=== PATIENT | female | born 1945 | race Caucasian/White ===

== ENCOUNTER → 2016-10-15 | Outpatient (CLI) | payer MEDICARE, BC | LOC: GMAB 11:25 | PROVIDERS: ATTEND Family Medicine | DX: E03.9 Hypothyroidism, unspecified (principal) ==

== ENCOUNTER → 2017-01-29 | Outpatient (CLI) | payer MEDICARE ==
--- NOTE | 2017-01-30 10:22 | MAM ---
History: Well woman exam. Date of exam: 01/29/2017 Services provided: Bilateral full field digital screening mammography. CAD, the images were reviewed with R2 computer aided detection. FINDINGS: Glandular tissue is scattered glandular contour with increased mammographic density. Comparison with 2014 study. No dominant mass, architectural distortion or clustered microcalcification. IMPRESSION: Benign exam Recommendation: Routine annual mammography BIRAD CATEGORY: 2 BENIGN Electronically signed by: Olamide Bentley MD 01/30/2017 10:21 AM CDT
== END ==
LOC: MAMMO 08:24
PROVIDERS: ATTEND Family Medicine
DX: Z12.31 Encounter for screening mammogram for malignant neoplasm of breast (principal)

== ENCOUNTER 2017-02-16 18:20 | Emergency (ER) | payer MEDICARE ==
--- NOTE | 2017-02-16 19:32 | ED.PDOC ---
History of Present Illness - General Chief Complaint: Neuro Symptoms/Deficits Stated Complaint: R palm got hot and had tingling in her fingers X2 Time Seen by Provider: 02/16/17 19:05 Source: patient, RN notes reviewed, Vital Signs reviewed Exam Limitations: no limitations - History of Present Illness Initial Comments: Twice today patient had episodes where her R palm got hot and her fingers got tingly. Both episodes occurred when she was laying back holding up her e- reader. 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 Denies other symptoms and currently symptoms have resolved. Timing/Duration: 1-3 hours Severity: mild Improving Factors: rest Worsening Factors: other - Holding e-reader Associated Symptoms: denies symptoms Allergies/Adverse Reactions: Allergies Cefaclor [From Ceclor] Allergy (Verified 02/10/15 17:00) Cephalexin [From Keflex] Allergy (Verified 02/10/15 17:00) Cephalosporins Allergy (Verified 02/10/15 17:00) Flu Virus Vaccine Allergy (Verified 02/10/15 17:00) Penicillin G Allergy (Verified 02/10/15 17:00) iv contrast Allergy (Uncoded 02/10/15 17:00) Home Medications: Ambulatory Orders Ciprofloxacin [Cipro] 250 mg PO BID #14 tab 11/19/15 Levothyroxine Sodium [Synthroid] 75 mcg PO DAILY 11/19/15 Pantoprazole Tablet [Protonix] 40 mg PO DAILY 11/19/15 Ramipril DAILY 11/19/15 Simvastatin 40 mg PO DAILY 11/19/15 Review of Systems - Review of Systems Constitutional: States: no symptoms reported EENTM: States: no symptoms reported Respiratory: States: no symptoms reported Cardiology: States: no symptoms reported Gastrointestinal/Abdominal: States: no symptoms reported Musculoskeletal: States: no symptoms reported Skin: States: no symptoms reported Neurological: States: see HPI, paresthesia, tingling Past Medical History (General) - Patient Medical History Hx Hypertension: Yes Hx Thyroid Disease: Yes Hx Renal Disease: Yes Hx Cancer: No Hx Hepatitis C: No - Vaccination History Hx Tetanus, Diphtheria Vaccination: Yes - Current Hx Influenza Vaccination: No Hx Pneumococcal Vaccination: No - Social History Hx Tobacco Use: No Hx Alcohol Use: No - Female History Patient : No Family Medical History - Family History Mother Family History: Unknown Physical Exam - Physical Exam General Appearance: Alert, Comfortable, No apparent distress, Well Developed, Well Groomed, Well Hydrated, Well Nourished ENT Exam: hearing grossly normal Neck: full range of motion, supple Respiratory: no respiratory distress, no accessory muscle use Extremities Exam: non-tender, normal range of motion, no evidence of injury, other - + Tinel's sign R wrist 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 Copy, Patient Portal Self Enrollment Instructions: DI for Carpal Tunnel Syndrome Diet: resume usual diet Activity: no pushing/pulling with affected limb Referrals: Jorge Guzman MD [Primary Care Provider] - 1-2 Weeks Home Medications: Ambulatory Orders Ciprofloxacin [Cipro] 250 mg PO BID #14 tab 11/19/15 Levothyroxine Sodium [Synthroid] 75 mcg PO DAILY 11/19/15 Pantoprazole Tablet [Protonix] 40 mg PO DAILY 11/19/15 Ramipril DAILY 11/19/15 Simvastatin 40 mg PO DAILY 11/19/15 Additional Instructions: Wear splint at night for 2 weeks and then see how symptoms are. If not improving or if worsening increase use to 24 hours/day
[2017-02-16 20:16] VITALS: BP 129/81; TEMP 97.8; O2SAT 96
== END 2017-02-16 19:30 | disposition home or self-care (01) ==
LOC: ER 18:20
DX: G56.01 Carpal tunnel syndrome, right upper limb (principal); I10 Essential (primary) hypertension; E07.9 Disorder of thyroid, unspecified; N28.9 Disorder of kidney and ureter, unspecified; Z88.3 Allergy status to other anti-infective agents; Z88.0 Allergy status to penicillin; Z88.7 Allergy status to serum and vaccine; Z91.041 Radiographic dye allergy status

== ENCOUNTER → 2017-10-16 | Outpatient (CLI) | payer MEDICARE | END | disposition home or self-care (01) | LOC: GMAB 11:39 | PROVIDERS: ATTEND Family Medicine | DX: N39.0 Urinary tract infection, site not specified (principal); E03.9 Hypothyroidism, unspecified ==

== ENCOUNTER → 2018-12-29 | Outpatient (CLI) | payer MEDICARE | LOC: GMAE 11:31 | PROVIDERS: ATTEND Family Medicine | DX: E03.9 Hypothyroidism, unspecified (principal) ==

== ENCOUNTER → 2019-01-05 | Outpatient (CLI) | payer MEDICARE ==
--- NOTE | 2019-01-06 14:31 | MAM ---
EXAM DESCRIPTION: 3D Screening BILATERAL : Digital Mammography. CLINICAL HISTORY: 73 years Female SCREEN . No complaints. Mother with breast cancer. Remote family history of breast cancer. No childbirth. Hysterectomy 43 years ago. HRT 5 or more years ago. Lifetime risk of developing breast cancer (Tyrer-Cuzick model)(%): 10.7. COMPARISON: Bilateral screening 2-D digital mammography 01/29/2017. TECHNIQUE: Bilateral CC and MLO projection full-field images, digital tomosynthesis mammographic technique Bilateral digital 2-D full-field MLO images. CAD not available for tomosynthesis or 2-D images. FINDINGS: The breast parenchymal density pattern is: Scattered areas of fibroglandular density. No skin thickening or nipple retraction. Bilateral axillary lymph nodes. Bilateral solitary microcalcifications. Bilateral vascular calcifications. No new focal, stellate mass or density, focal asymmetry , and no suspicious microcalcifications bilaterally. Stable mammograms compared to prior study. Taking into account, differences in mammographic technique. IMPRESSION: Benign exam. BIRAD CATEGORY: 2 BENIGN FINDINGS. RECOMMENDATIONS: FOLLOW UP: Routine digital bilateral mammographic screening, one year interval from January 2019. Written communication explaining the IMPRESSION and follow-up, will be mailed to the patient and referring health care provider. The FINDINGS and the FOLLOW-UP plan were reviewed in person with the patient after the examination. According to the [employer], yearly mammograms are recommended starting at age 40 and continuing as long as a woman is in good health. Any breast change noted on a breast self-exam should be reported promptly to the patient's healthcare provider. Breast MRI is recommended for women with an approximately 20-25% or greater lifetime risk of breast cancer, including women with a strong family history of breast or ovarian cancer and women who have been treated for Hodgkin's disease. A negative mammographic report should not delay tissue diagnosis in patients with significant clinical history or physical findings. Extremely dense breast tissue limits the sensitivity of digital mammography. Electronically signed by: Bryan De La Rosa MD 01/06/2019 2:28 PM CDT
== END ==
LOC: MAMMO 08:30
PROVIDERS: ATTEND Family Medicine
DX: Z12.31 Encounter for screening mammogram for malignant neoplasm of breast (principal)

== ENCOUNTER 2019-04-29 06:47 | Emergency (ER) | payer MEDICARE ==
[2019-04-29] MEDS: ONDANSETRON ODT 8 MG TAB SL ONE (07:45)
[2019-04-29] MEDS: SODIUM CHLORIDE 0.9% 1000ML 1,000 ML IVS ONE (07:45)
--- NOTE | 2019-04-29 08:11 | RAD ---
PROVIDED CLINICAL HISTORY/REASON FOR EXAM: nvd 2 days Findings: Number of images: Three Location: Chest and abdomen No acute cardiopulmonary abnormality. Cholecystectomy clips. No free air beneath the diaphragm. Nonobstructive bowel gas pattern. No suspicious calcification. No acute osseous abnormality. IMPRESSION: Unremarkable acute abdominal series. Electronically signed by: Godfrey To MD 04/29/2019 8:09 AM CDT
[2019-04-29 08:29] VITALS: TEMP 99.1
[2019-04-29] MEDS ORDERED: MAGNESIUM SULFATE PREMIX 2GM 50 ML IVPB ONE (08:41)
[2019-04-29] MEDS: MAGNESIUM SULFATE PREMIX 2GM 2 GM in PREMIX BAG 1 BAG IVPB ONE (08:41)
--- NOTE | 2019-04-29 09:01 | ED.PDOC ---
History of Present Illness - General Chief Complaint: GI Problem Time Seen by Provider: 04/29/19 07:06 Source: patient Exam Limitations: no limitations - History of Present Illness Initial Comments: the patient is a 73-year-old female presenting with 2-3 days of some nausea vomiting and diarrhea. No blood and no bile. No trauma. No point tenderness. She does have a history of recurrent urinary tract infections and does take Macrobid daily. No urinary symptoms. No syncope or near syncope. She does feel weak. Timing/Duration: other - 2 days Severity: moderate Improving Factors: nothing Worsening Factors: nothing Associated Symptoms: loss of appetite, malaise, nausea/vomiting Allergies/Adverse Reactions: Allergies Cefaclor [From Ceclor] Allergy (Verified 02/10/15 17:00) Cephalexin [From Keflex] Allergy (Verified 02/10/15 17:00) Cephalosporins Allergy (Verified 02/10/15 17:00) Flu Virus Vaccine Allergy (Verified 02/10/15 17:00) Influenza Vaccines Allergy (Verified 02/16/17 19:37) Penicillin G Allergy (Verified 02/10/15 17:00) iv contrast Allergy (Uncoded 02/10/15 17:00) Lincomycin Allergy (Uncoded 02/16/17 19:37) Lorabid Allergy (Uncoded 02/16/17 19:37) Home Medications: Ambulatory Orders Levothyroxine Sodium [Synthroid] 75 mcg PO DAILY 11/19/15 Pantoprazole Tablet [Protonix] 40 mg PO DAILY 11/19/15 Simvastatin 40 mg PO DAILY 11/19/15 Acetaminophen [Eq Pain Reliever] 500 mg PO Q8HR PRN 02/16/17 Beclomethasone Dipropionate [Qvar] 1 puff IN BID 02/16/17 Calcium & Phosphorus W/ Vitami [Citracal+D3 250-107-500 mg-mg-Unit] 1 chw PO DAILY 02/16/17 Multiple Vitamins W/ Minerals [Centrum Silver] 1 ea PO DAILY 02/16/17 Nitrofurantoin Macrocrystal [Nitrofurantoin Macrocryst] 100 mg PO BID 02/16/17 Probiotic Product [Probiotic] 1 tab PO DAILY 02/16/17 Ramipril 2.5 mg PO DAILY 02/16/17 Famotidine [Pepcid Tab] 20 mg PO BID #30 tab 04/29/19 Ondansetron [Ondansetron Odt] 4 mg PO Q8HR PRN #10 tab 04/29/19 Sucralfate Tab [Carafate Tab] 1 gm PO QID #30 tab 04/29/19 Review of Systems - Review of Systems Constitutional: States: malaise EENTM: States: no symptoms reported Respiratory: States: no symptoms reported Cardiology: States: no symptoms reported Gastrointestinal/Abdominal: States: diarrhea, nausea, vomiting Genitourinary: States: no symptoms reported Musculoskeletal: States: no symptoms reported Skin: States: no symptoms reported Neurological: States: headache Endocrine: States: no symptoms reported All other Systems: No Change from Baseline Past Medical History (General) - Patient Medical History Hx Stroke: No Hx Asthma: Yes Hx Congestive Heart Failure: No Hx Hypertension: Yes Hx Thyroid Disease: Yes Hx Diabetes: No Hx Gastroesophageal Reflux: Yes Hx Renal Disease: Yes Hx Cancer: No Hx Hepatitis C: No Surgical History: cholecystectomy, Hysterectomy, other - Vaccination History Hx Tetanus, Diphtheria Vaccination: Yes - Current Hx Influenza Vaccination: No Hx Pneumococcal Vaccination: No - Social History Hx Tobacco Use: No Hx Chewing Tobacco Use: No Hx Alcohol Use: No Hx Substance Use: No Hx Substance Use Treatment: No Hx Depression: No Hx Physical Abuse: No Hx Emotional Abuse: No Hx Suspected Abuse: No - Female History Patient : No Family Medical History - Family History Mother Family History: Unknown Physical Exam - Physical Exam General Appearance: Alert, No apparent distress Eye Exam: bilateral normal Ears, Nose, Throat: hearing grossly normal, normal ENT inspection Neck: full range of motion, supple Respiratory: lungs clear, normal breath sounds, no respiratory distress, no accessory muscle use Cardiovascular/Chest: normal peripheral pulses, no edema, tachycardia Peripheral Pulses: radial,right: 2+, radial,left: 2+, dorsalis pedis,right: 2+, dorsalis pedis,left: 2+ Gastrointestinal/Abdominal: non tender, soft, other - no rebound or peritoneal signs. No palpable mass. No point tenderness. Diffuse discomfort to palpation. Rectal Exam: deferred Back Exam: no CVA tenderness, no vertebral tenderness Extremity: normal range of motion, non-tender, normal inspection, no pedal edema, normal capillary refill Neurologic: stripper black and white II-XII nml as tested, alert, normal mood/affect, oriented x 3 Skin Exam: normal color Comments: Vital Signs - 24 hr 04/29/19 04/29/19 06:55 08:00 Temperature 100.0 F H 99.1 F Pulse Rate [ 127 H 100 H Right Arm] Respiratory 18 18 Rate Blood Pressure 141/105 103/63 [Right Arm] O2 Sat by Pulse 95 98 Oximetry Progress - Progress Progress: 04/29/19 09:02 the patient is a 73-year-old female presenting to the emergency room secondary to 2-3 days of nausea vomiting diarrhea. She does appear to have mild to moderate dehydration and has received a liter of IV fluids here. She does have mild hypomagnesemia and received some supplemental magnesium here as well. The patient will be written for Zofran for as needed use to control any nausea or vomiting. She can use small amounts of [id number] Imodium or Pepto- Bismol to help reduce diarrhea. We do not want her to be constipated. She needs to maintain a bland diet, small frequent meals and increase fluid intake. She will also be written for some Pepcid and Carafate to take for the next couple of weeks to reduce any gastritis issues. She can hold on her Macrobid for the next 2-3 days to reduce stomach irritation. ER warnings were given. I would encourage her to follow back up with her primary care doctor early next week for repeat evaluation. - Results/Orders Results/Orders: Laboratory Tests 04/29/19 04/29/19 04/29/19 07:30 07:30 07:30 WBC 4.9 RBC 4.74 Hgb 13.9 Hct 42.1 MCV 88.8 MCH 29.3 MCHC 33.0 RDW 13.0 Plt Count 125 L MPV 11.5 H Absolute Neuts (auto) 4.10 Absolute Lymphs (auto) 0.50 L Absolute Monos (auto) 0.30 Absolute Eos (auto) 0.00 Absolute Basos (auto) 0.00 Neutrophils % 84.0 H Lymphocytes % 9.5 L Monocytes % 5.8 Eosinophils % 0.4 L Basophils % 0.3 Sodium 139 Potassium 3.6 Chloride 108 Carbon Dioxide 19 L Anion Gap 15.6 BUN 26 H Creatinine 1.17 BUN/Creatinine Ratio 22.2 H Random Glucose 113 H Serum Osmolality 283.1 Lactic Acid 1.0 Calcium 9.5 Magnesium 1.6 L Total Bilirubin 0.7 AST 33 ALT 25 Alkaline Phosphatase 73 Creatine Kinase 107 CK-MB (CK-2) 1.4 Troponin I < 0.02 B-Natriuretic Peptide 27.1 Serum Total Protein 7.1 Albumin 3.9 Globulin 3.2 Albumin/Globulin Ratio 1.2 Amylase 53 Lipase 26 TSH 0.16 L Urine Color Urine Appearance Urine pH Ur Specific [place] Urine Protein Urine Glucose (UA) Urine Ketones Urine Blood Urine Nitrite Urine Bilirubin Urine Urobilinogen Ur Leukocyte Esterase Urine RBC Urine WBC Ur Epithelial Cells Amorphous Sediment Urine Bacteria Urine Mucus 04/29/19 07:30 WBC RBC Hgb Hct MCV MCH MCHC RDW Plt Count MPV Absolute Neuts (auto) Absolute Lymphs (auto) Absolute Monos (auto) Absolute Eos (auto) Absolute Basos (auto) Neutrophils % Lymphocytes % Monocytes % Eosinophils % Basophils % Sodium Potassium Chloride Carbon Dioxide Anion Gap BUN Creatinine BUN/Creatinine Ratio Random Glucose Serum Osmolality Lactic Acid Calcium Magnesium Total Bilirubin AST ALT Alkaline Phosphatase Creatine Kinase CK-MB (CK-2) Troponin I B-Natriuretic Peptide Serum Total Protein Albumin Globulin Albumin/Globulin Ratio Amylase Lipase TSH Urine Color Yellow Urine Appearance Clear Urine pH 5.5 Ur Specific [place] >= 1.030 Urine Protein >=300 H Urine Glucose (UA) Negative Urine Ketones 40 H Urine Blood Large H Urine Nitrite Negative Urine Bilirubin Moderate Urine Urobilinogen 0.2 Ur Leukocyte Esterase Negative Urine RBC 3-5 H Urine WBC 3-5 H Ur Epithelial Cells 1-3 Amorphous Sediment 2+ Urine Bacteria 1+ Urine Mucus Small cute abdominal series fails to show any acute pathology. Departure - Departure Clinical Impression: Acute gastroenteritis, Dehydration, moderate, Hypomagnesemia Disposition: Discharge to Home or Self Care Condition: Fair Departure Forms: ED Discharge - Pt. Copy, Patient Portal Self Enrollment Instructions: DI for Diarrhea and Traveler's Diarrhea -- Adult, DI for Gastritis Diet: bland diet Activity: increase activity as tolerated Referrals: NEL ANDERSON MD [Primary Care Provider] - 1-5 Days Prescriptions: Ondansetron [Ondansetron Odt] 4 mg PO Q8HR PRN #10 tab PRN Reason: Nausea/Vomiting Famotidine [Pepcid Tab] 20 mg PO BID #30 tab Sucralfate Tab [Carafate Tab] 1 gm PO QID #30 tab Home Medications: Ambulatory Orders Levothyroxine Sodium [Synthroid] 75 mcg PO DAILY 11/19/15 Pantoprazole Tablet [Protonix] 40 mg PO DAILY 11/19/15 Simvastatin 40 mg PO DAILY 11/19/15 Acetaminophen [Eq Pain Reliever] 500 mg PO Q8HR PRN 02/16/17 Beclomethasone Dipropionate [Qvar] 1 puff IN BID 02/16/17 Calcium & Phosphorus W/ Vitami [Citracal+D3 250-107-500 mg-mg-Unit] 1 chw PO DAILY 02/16/17 Multiple Vitamins W/ Minerals [Centrum Silver] 1 ea PO DAILY 02/16/17 Nitrofurantoin Macrocrystal [Nitrofurantoin Macrocryst] 100 mg PO BID 02/16/17 Probiotic Product [Probiotic] 1 tab PO DAILY 02/16/17 Ramipril 2.5 mg PO DAILY 02/16/17 Famotidine [Pepcid Tab] 20 mg PO BID #30 tab 04/29/19 Ondansetron [Ondansetron Odt] 4 mg PO Q8HR PRN #10 tab 04/29/19 Sucralfate Tab [Carafate Tab] 1 gm PO QID #30 tab 04/29/19 Additional Instructions: the patient is a 73-year-old female presenting to the emergency room secondary to 2-3 days of nausea vomiting diarrhea. She does appear to have mild to moderate dehydration and has received a liter of IV fluids here. She does have mild hypomagnesemia and received some supplemental magnesium here as well. The patient will be written for Zofran for as needed use to control any nausea or vomiting. She can use small amounts of [id number] Imodium or Pepto- Bismol to help reduce diarrhea. We do not want her to be constipated. She needs to maintain a bland diet, small frequent meals and increase fluid intake. She will also be written for some Pepcid and Carafate to take for the next couple of weeks to reduce any gastritis issues. She can hold on her Macrobid for the next 2-3 days to reduce stomach irritation. ER warnings were given. I would encourage her to follow back up with her primary care doctor early next week for repeat evaluation.
[2019-04-29 09:51] VITALS: BP 138/78; O2SAT 97
== END 2019-04-29 09:51 | disposition home or self-care (01) ==
LOC: ER 06:47
DX: K52.9 Noninfective gastroenteritis and colitis, unspecified (principal); E86.0 Dehydration; E83.42 Hypomagnesemia; K21.9 Gastro-esophageal reflux disease without esophagitis; I12.9 Hypertensive chronic kidney disease with stage 1 through stage 4 chronic kidney disease, or unspecified chronic kidney disease; E07.9 Disorder of thyroid, unspecified; J45.909 Unspecified asthma, uncomplicated; N18.9 Chronic kidney disease, unspecified; Z90.49 Acquired absence of other specified parts of digestive tract; Z79.899 Other long term (current) drug therapy; Z88.1 Allergy status to other antibiotic agents; Z91.041 Radiographic dye allergy status; Z88.0 Allergy status to penicillin; Z88.7 Allergy status to serum and vaccine; Z87.440 Personal history of urinary (tract) infections
CPT/HCPCS: 74019; 80053; 81001; 82150; 82550; 82553; 83605; 83690; 83735; 83880; 84443; 84484; 85025; J3475; J7030

== ENCOUNTER → 2019-09-23 | Outpatient (CLI) | payer MEDICARE ==
--- NOTE | 2019-09-23 18:34 | US ---
EXAM DESCRIPTION: Renal: Ultrasound. CLINICAL HISTORY: 74 years Female MICRO HEMATURIA COMPARISON: Radionuclide renal evaluation with captopril February 2014. TECHNIQUE: Transcutaneous scanning: Two-dimensional and Doppler modes. Technically difficult study due to patient body habitus. FINDINGS: Right kidney measures 9.7 x 4.1 x 3.7 cm; mid-renal cortical thickness 1.2 cm. Some images suggest a heterogeneous mass in the mid renal cortex. This may be slightly more echogenic than the remaining cortex.. Increased heterogeneous cortical echogenicity similar to the liver. 11 x 12 x 11 mm anechoic cyst in the cortex. Possible dependent proteinaceous fluid or calcification. No hydronephrosis 7 mm echogenic stones lower pole. Minimally lobulated contour of the kidney with no perinephric fluid. Normal vascularity. Proximal ureter not seen.. Left kidney measures 10.0 x 4.6 x 4.5 cm; mid-renal cortical thickness normal.. Increased echogenicity, less than the right kidney. Minimal hydronephrosis. 5.4 x 3.9 mm echogenic stones. Minimally lobulated contour of the kidney with no perinephric fluid. Normal vascularity.. Proximal ureter not seen.. Urinary bladder not visualized. Abdominal aorta: not measured. IMPRESSION: 1. Heterogeneous cortex in the right kidney with minimal thinning and echogenicity similar to the liver. Lobulated capsule. Questionable enlargement or mass in the mid kidney. 7 mm echogenic stones in the lower pole. No hydronephrosis. [address] scan of the kidneys with without IV contrast. 2. Minimal increase in cortical echogenicity in the left kidney with normal thickness. Minimal capsular lobulations. 5.4 mm echogenic stones. Mild hydronephrosis. Proximal ureter not seen.. Electronically signed by: Bryan De La Rosa MD 09/23/2019 6:33 PM EMERGENCY DEPARTMENT MANAGER
== END ==
LOC: US 08:58
PROVIDERS: ATTEND Urology
DX: N13.2 Hydronephrosis with renal and ureteral calculous obstruction (principal); N28.1 Cyst of kidney, acquired; R31.29 Other microscopic hematuria

== ENCOUNTER → 2020-02-17 | Outpatient (CLI) | payer MEDICARE | LOC: GMAE 11:19 | PROVIDERS: ATTEND Family Medicine | DX: E03.9 Hypothyroidism, unspecified (principal); I10 Essential (primary) hypertension ==

== ENCOUNTER → 2020-03-27 | Outpatient (CLI) | payer MEDICARE ==
--- NOTE | 2020-03-27 13:21 | CT ---
EXAM DESCRIPTION: Abdoment/Pelvis w/o Contrast CLINICAL HISTORY: 74 years Female, RENAL LEISION COMPARISON: Ultrasound dated 09/23/2019 TECHNIQUE: Contiguous 3 mm axial images were obtained from the lung bases to the level of the proximal femora without the administration of intravenous or oral contrast. Sagittal and coronal reconstructions were reviewed. FINDINGS: Limited evaluation of the solid organs due to the lack of intravenous contrast. THORAX: The imaged lower thorax demonstrates no gross abnormality. LIVER: The liver demonstrates normal size and density with no intrahepatic biliary ductal dilatation. GALLBLADDER: Surgically absent. PANCREAS: Appears normal with no cystic or solid lesions. SPLEEN: Normal ADRENAL GLANDS: Normal with no nodules or masses. KIDNEYS: Prominence of the bilateral renal pelvises, worse on the left side. Transition point is noted at the ureteropelvic junctions bilaterally. Punctate nonobstructive calculi measuring up to 2 mm are noted in both kidneys. The visualized ureters appear grossly unremarkable. STOMACH: Small hiatal hernia. The stomach is mildly distended with no gross abnormality. SMALL BOWEL: The small bowel loops demonstrate variable degrees of distention with no abnormal dilatation or other signs to suggest bowel obstruction. LARGE BOWEL: Multiple diverticula are noted throughout the visualized colon, with no acute inflammation. Mild constipation. The appendix is not definitively visualized, however no secondary signs to suggest acute appendicitis. No evidence of free intraperitoneal air or fluid. RETROPERITONEUM: The abdominal aorta is nonaneurysmal with moderate atherosclerosis. The inferior vena cava is normal in size and caliber. No abnormally enlarged retroperitoneal lymph nodes are identified. URINARY BLADDER:The urinary bladder is well-distended with no gross abnormality. Uterus and ovaries are surgically absent. ADDITIONAL FINDINGS: None. BONES: Mild degenerative changes are identified in the visualized bones.No evidence of osteophytic or osteoblastic lesions. IMPRESSION: Prominence of the bilateral renal pelvises, worse on the left side. Transition point is noted at the ureteropelvic junctions bilaterally. Punctate nonobstructive calculi measuring up to 2 mm are noted in both kidneys. Colonic diverticulosis. This exam was performed according to our departmental dose-optimization program, which includes automated exposure control, adjustment of the mA and/or kV according to patient size and/or use of iterative reconstruction technique. Electronically signed by: Francoise Lozano MD 03/27/2020 1:20 PM CDT
== END ==
LOC: CT 09:09
PROVIDERS: ATTEND Family Medicine
DX: N28.9 Disorder of kidney and ureter, unspecified (principal); N20.0 Calculus of kidney; K57.30 Diverticulosis of large intestine without perforation or abscess without bleeding

== ENCOUNTER → 2020-04-12 | Outpatient (CLI) | payer MEDICARE ==
--- NOTE | 2020-04-13 15:31 | MAM ---
EXAM DESCRIPTION: 3D Screening BILATERAL : Digital Mammography. CLINICAL HISTORY: 74 years Female SCREENING . No complaints. Mother with breast cancer unknown age. Remote family history of breast cancer. Menarche age 15. No childbirth. Menopause age 30. Bilateral cyst aspiration and right breast biopsy benign. No HRT. Lifetime risk of developing breast cancer (Tyrer-Cuzick model)(%): 13.9. COMPARISON: Bilateral screening digital breast tomosynthesis January 2019 and 2-D digital screening mammography January 2017. TECHNIQUE: Bilateral CC and MLO projection full-field images, digital tomosynthesis mammographic technique. Bilateral digital 2-D full-field MLO images. CAD available for 2-D images. FINDINGS: The breast parenchymal density pattern is: Scattered areas of fibroglandular density. No skin thickening or nipple retraction. Axillary lymph nodes. Vascular calcifications. Solitary microcalcifications. No new focal, stellate mass or density, focal asymmetry , and no suspicious microcalcifications . Stable mammograms compared to prior study. IMPRESSION: Benign exam. BIRAD CATEGORY: 2 BENIGN FINDINGS. RECOMMENDATIONS: FOLLOW UP: Routine digital bilateral mammographic screening, one year interval from April 2020. Written communication explaining the IMPRESSION and follow-up, will be mailed to the patient and referring health care provider. According to the [employer], yearly mammograms are recommended starting at age 40 and continuing as long as a woman is in good health. Any breast change noted on a breast self-exam should be reported promptly to the patient's healthcare provider. Breast MRI is recommended for women with an approximately 20-25% or greater lifetime risk of breast cancer, including women with a strong family history of breast or ovarian cancer and women who have been treated for Hodgkin's disease. A negative mammographic report should not delay tissue diagnosis in patients with significant clinical history or physical findings. Extremely dense breast tissue limits the sensitivity of digital mammography. Electronically signed by: Bryan De La Rosa MD 04/13/2020 3:29 PM CDT
== END ==
LOC: US 08:00
PROVIDERS: ATTEND Family Medicine
DX: Z12.31 Encounter for screening mammogram for malignant neoplasm of breast (principal)

== ENCOUNTER → 2020-08-29 | Outpatient (CLI) | payer MEDICARE | LOC: GMAE 10:36 | PROVIDERS: ATTEND Family Medicine | DX: E03.9 Hypothyroidism, unspecified (principal) ==